=== PATIENT | male | born 1970 | race Two or more races ===

== ENCOUNTER 2021-01-31 11:33 | Emergency (ER) | payer OTHER ==
[~2021-01-31] VITALS: Ht 160 cm; Wt 90.7 kg
[2021-01-31 11:57] VITALS: BP 153/104
--- NOTE | 2021-01-31 12:02 | NUR ---
[employer]W[place] SHEETS at the bedside.
--- NOTE | 2021-01-31 12:03 | NUR ---
BIBS due to "Metal fell on Right foot last wednesday. Painful" Rates pain 3/10. No deformity noted. Will continue to monitor the patient.
[2021-01-31] MEDS ORDERED: IBUPROFEN 400 MG TABLET ONE (12:05)
[2021-01-31] MEDS ORDERED: TDAP [DIPH/PERTUSSIS/TET] 0.5 ML VIAL IM ONE ×2 (12:29→12:30)
[2021-01-31] MEDS ORDERED: IBUPROFEN 400 MG TABLET PO ONE (12:30)
[2021-01-31] MEDS ORDERED: IBUP-1955 PO (12:36)
== END 2021-01-31 13:29 | disposition home or self-care (01) ==
LOC: ER 11:40
DX: S90.31XA Contusion of right foot, initial encounter (principal); I10 Essential (primary) hypertension; E11.9 Type 2 diabetes mellitus without complications; W18.39XA Other fall on same level, initial encounter; Y93.89 Activity, other specified; Y92.89 Other specified places as the place of occurrence of the external cause; Y99.8 Other external cause status
CPT/HCPCS: 73630-TC; 90715